=== PATIENT | female | born 1945 | race Caucasian/White ===

== ENCOUNTER → 2019-08-09 | Outpatient (CLI) | payer BC ==
[~2019-08-09] MED LIST: ACHD5005 PO; AMLO5TAB4 PO; ATEN25TA PO; ATOR20TA49 PO; CEPH-507 PO; DAPA1TAB4 PO; ESOM10SU PO; LOSA25TA2 PO; RIVA10T PO
[2019-08-09 09:23] LABS: ALANINE AMINOTRANSFERASE 15 U/L (0-55); ALBUMIN 4.3 GM/DL (3.2-4.5); ALKALINE PHOSPHATASE 76 U/L (40-136); BILIRUBIN,TOTAL 0.6 MG/DL (0.1-1.0); BUN/CREATININE RATIO 21; CALCIUM 9.9 MG/DL (8.5-10.1); CARBON DIOXIDE 24 MMOL/L (21-32); CHLORIDE 103 MMOL/L (98-107); CREATININE SERUM 0.63 MG/DL (0.60-1.30); GFR ESTIMATED > 60; GLUCOSE 177 MG/DL (70-105); POTASSIUM 4.4 MMOL/L (3.6-5.0); SODIUM 142 MMOL/L (135-145); TOTAL PROTEIN 7.5 GM/DL (6.4-8.2)
[2019-08-09 15:28] LABS: CHOLESTEROL 160 MG/DL (< 200); HDL CHOLESTEROL 63 MG/DL (40-60); TRIGLYCERIDES 104 MG/DL (<150); VLDL CHOLESTEROL 21 MG/DL (5-40)
== END ==
LOC: LAB FS 08:07
PROVIDERS: ATTEND Family Medicine
DX: E11.9 Type 2 diabetes mellitus without complications (principal)
CPT/HCPCS: 36415; 80053; 80061; 83036

== ENCOUNTER 2020-04-21 16:55 | Emergency (ER) | payer BC ==
[~2020-04-21] VITALS: Ht 154.9 cm; Wt 63.1 kg
[2020-04-21 17:26] LABS: CLARITY,URINE CLEAR; COLOR,URINE YELLOW
[2020-04-21 17:27] LABS: BACTERIA,URINE NEGATIVE /HPF; BILIRUBIN,URINE NEGATIVE (NEGATIVE); GLUCOSE, URINE (UA) 3+ (NEGATIVE); KETONES,URINE NEGATIVE (NEGATIVE); LEUKOCYTE ESTERASE ,URINE NEGATIVE (NEGATIVE); NITRITE,URINE NEGATIVE (NEGATIVE); PROTEIN,URINE NEGATIVE (NEGATIVE); RBC,URINE RARE /HPF
--- NOTE | 2020-04-21 17:40 | ED Back Pain ---
General Chief Complaint: Back Problems Stated Complaint: BACK PAIN Nursing Triage Note: Pt arrived by private vehicle with , with chief complaint of back injury. A week ago yesterday, pt tried to pull a tree onto the porch and heard her lower back "pop". Pt was alert, oriented x 4 and ambulatory. Pt stated she took a tylenol this afternoon at 1600, but only helped a little bit. Pt thought it was going to get better, but it hasn't. Pt stated her pain was a 8. Pt denies allergies to medications. Pt's vital signs were done at arrival, and urine sample was collected. Nursing Sepsis Screen: No Definite Risk Source of Information: Patient History of Present Illness Date Seen by Provider: Apr 21, 2020 Time Seen by Provider: 17:40 Initial Comments 74-year-old female presenting with complaints of low back pain radiating to her right hip. She states about a week ago she was moving a heavy plant and signed. She was using a dominique that was having to pull hard to get the plant removed. As she was pulling she felt a pop in her back and was having severe pain that rad iates into her right hip area. She has had pain continuing all week. She thought it was going to get better on its own. However when it wasn't getting better she tried contacting her doctor's office. Initially the nurse and told her that if it wasn't better in a few days to call back in to the clinic. When she called back they told her she couldn't be seen until Friday. The pain was too severe and she has not been able to rest the last few days because of it so she came into the emergency department. Certain positions and movement seemed to make it worse. There is no pain radiating down her leg. She has no numbness or tingling. She has no loss of bowel or bladder control. She denies having pain like this in the past. Tylenol and Ibuprofen at home have helped a minimal amount but nothing that lasted more than 1-2 hours at most. Location: Lumbar Spine (radiating around to the right hip area) Timing/Duration: 6-7 Days Severity: Severe Pain/Injury Location: Back, Pelvis (right hip) Radiation: Other (low back wrapping around to the right hip) Modifying Factors: Worse With Movement Associated Symptoms: No fever, No weakness, No numbness in legs/feet, No tingling in legs/feet, No sensory/motor loss; lower back pain; No loss of bladder control, No loss of bowel control Allergies and Home Medications Allergies Coded Allergies: No Known Drug Allergies (Unverified , 04/12/16) Home Medications Amlodipine Besylate 5 Mg Tablet, 5 MG PO DAILY, (Reported) Atenolol 25 Mg Tablet, 25 MG PO DAILY, (Reported) Atorvastatin Calcium 20 Mg Tablet, 20 MG PO DAILY, (Reported) Cephalexin 500 Mg Capsule, 500 MG PO TID Prescribed by: ILA JARAMILLO on 04/12/16 143 Dapagliflozin/Metformin HCl 1 Each Tab.bp.24h, 1 EACH PO DAILY, (Reported) Esomeprazole Magnesium 10 Mg Suspdr.pkt, 10 MG PO DAILY, (Reported) Hydrocodone Bit/Acetaminophen 1 Each Tablet, 1-2 EACH PO Q4H PRN for PAIN Prescribed by: ILA JARAMILLO on 04/12/16 143 Hydrocodone/Acetaminophen 1 Each Tablet, 1 EACH PO Q6H PRN for PAIN-SEVERE (8- 10) Prescribed by: ARNALDO BARRIGA on 04/21/201956 Losartan Potassium 25 Mg Tablet, 25 MG PO DAILY, (Reported) Rivaroxaban 10 Mg Tablet, 10 MG PO DAILY, (Reported) Patient Home Medication List Home Medication List Reviewed: Yes Review of Systems Constitutional: no symptoms reported EENTM: no symptoms reported Respiratory: no symptoms reported Cardiovascular: no symptoms reported Gastrointestinal: no symptoms reported Genitourinary: no symptoms reported Musculoskeletal: see HPI Skin: no symptoms reported Psychiatric/Neurological: See HPI Past Hwsrskq-Pasfqb-Eqmrhy Hx Past Med/Social Hx: Reviewed Nursing Past Med/Soc Hx Patient Social History Alcohol Use: Denies Use Recreational Drug Use: No Smoking Status: Never a Smoker Type Used: Cigarettes Former Smoker, Quit: Mar 30, 1981 Recent Foreign Travel: No Contact w/Someone Who Travel: No Recent Infectious Disease Expo: No Recent Hopitalizations: No Physical Abuse: No Sexual Abuse: No Mistreated: No Fear: No Immunizations Up To Date Date of Pneumonia Vaccine: Mar 30, 2015 Date of Influenza Vaccine: Feb 29, 2016 Seasonal Allergies Seasonal Allergies: No Past Medical History Surgeries: Yes (eye, spinal, "throat", breast biopsy ) Section, Gallbladder, Orthopedic Respiratory: No Cardiac: Yes Hypertension Neurological: No Reproductive Disorders: No Gastrointestinal: No Musculoskeletal: Yes (CERVICAL STENOSIS) Endocrine: Yes Diabetes, Non-Insulin dep Hearing Impairment: Denies Cancer: No Psychosocial: No Integumentary: No Blood Disorders: No Physical Exam Vital Signs Vital Signs - First Documented 04/21/20 17:00 Temp 37.2 Pulse 77 Resp 16 B/P (MAP) 178/99 (125) Pulse Ox 98 O2 Delivery Room Air Capillary Refill : Less Than 3 Seconds Height, Weight, BMI Height: 5'1.00" Weight: 139lbs. 0.0oz. 63.642529fn; 26.00 BMI Method: General Appearance: WD/WN, Mild Distress Neck: Normal Inspection, Non Tender, Supple Cardiovascular: Regular Rate, Rhythm, Normal Peripheral Pulses Respiratory: Chest Non Tender, Lungs Clear, Normal Breath Sounds Gastrointestinal: Normal Bowel Sounds, No Pulsatile Mass, Non Tender, Soft Back: No CVA Tenderness, No Vertebral Tenderness; No CVA Tenderness (L), No CVA Tenderness (R); Decreased Range of Motion (due to pain in right lumbar and low back pain); No Muscle Spasm, No Vertebral Tenderness Extremity: Normal Capillary Refill, Normal Range of Motion (but pain in Right hip and low back with movement), No Pedal Edema Neurologic/Psychiatric: Alert, Oriented x3, No Motor/Sensory Deficits Skin: Normal Color, Warm/Dry Progress/Results/Core Measures Results/Orders Lab Results Laboratory Tests Test 04/21/20 17:10 Range/Units Urine Color YELLOW Urine Clarity CLEAR Urine pH 6.0 5-9 Urine Specific [place] 1.015 L 1.016-1.022 Urine Protein NEGATIVE NEGATIVE Urine Glucose (UA) 3+ H NEGATIVE Urine Ketones NEGATIVE NEGATIVE Urine Nitrite NEGATIVE NEGATIVE Urine Bilirubin NEGATIVE NEGATIVE Urine Urobilinogen 0.2 < = 1.0 MG/DL Urine Leukocyte Esterase NEGATIVE NEGATIVE Urine RBC (Auto) NEGATIVE NEGATIVE Urine RBC RARE /HPF Urine WBC 2-5 /HPF Urine Squamous Epithelial Cells 2-5 /HPF Urine Crystals NONE /LPF Urine Leucine Crystals /LPF Urine Bacteria NEGATIVE /HPF Urine Casts NONE /LPF Urine Mucus NEGATIVE /LPF Urine Culture Indicated NO My Orders Orders - ARNALDO BARRIGA MD Ua Culture If Indicated (04/21/20 17:01) Ketorolac Injection (Toradol Injection) (04/21/20 17:56) Orphenadrine Inj (Ed Only) (Norflex Inje (04/21/20 17:56) Ct Lumbar Spine Wo (04/21/20 18:37) Ct Pelvis Wo (04/21/20 18:37) Rx-Hydrocodone/Apap 5-325 Mg (Rx-Vicodin (04/21/20 20:00) Medications Given in ED Current Medications Medications Dose Ordered Sig/Nayana Route Start Time Stop Time Status Last Admin Dose Admin Acetaminophen/ Hydrocodone Bitart 1 ea Q6H PRN PO 04/21/20 20:00 04/21/20 20:02 DC 04/21/20 20:00 1 EA Vital Signs/I&O 04/21/20 04/21/20 17:00 20:02 Temp 37.2 Pulse 77 82 Resp 16 18 B/P (MAP) 178/99 (125) 146/92 (125) Pulse Ox 98 99 O2 Delivery Room Air Room Air Blood Pressure Mean: 125 Progress Progress Note #1: Progress Note try toradol with norflex to see if that helps her pain while waiting on CT scan of Lumbar spine and pelvis to evaluate for compression fracture or pelvis fracture Progress Note #2: Progress Note CT imaging does show L1 compression fracture. No other acute findings in lumbar spine or pelvis. Will treat with pain meds and have her check with clinic and if needed see about pain management or kyphoplasty. Diagnostic Imaging Diagonstic Imaging: CT Plain Films/CT/US/NM/MRI: pelvis (and Lumbar spine) Comments NAME: ERICK BREWSTER [facility] REC#: [id number] PT STATUS: REG ER : 1945 PHYSICIAN: ARNALDO BARRIGA MD ADMIT DATE: 04/21/20/ER FS Draft Date of Exam:04/21/20 CT LUMBAR SPINE WO PROCEDURE: CT lumbar spine without contrast. TECHNIQUE: Multiple contiguous axial images were obtained through the lumbar spine without the use of intravenous contrast. Sagittal and coronal reformations were then performed. Auto Exposure Controls were utilized during the CT exam to meet ALARA standards for radiation dose reduction. INDICATION: Injury one week ago following lifting as well as a fall. COMPARISON: None. FINDINGS: There is mild superior endplate compression deformity at L1 with about 10% stature loss of its middle and anterior one-third. Some of this is sclerotic and well marginated, however, at least a few cortical lucencies anteriorly are present consistent with at least some acute component to this compression. There is no retropulsion. This appears to be a single column injury with no involvement of the neural arch or posterior elements. There is a hemangioma in the L5 vertebral body as a chronic benign finding. No additional fracture found. Visualized portions of the sacrum are unremarkable. There is no appreciable paraspinal hematoma. There is likely some mild paraspinal edema associated with the L1 superior endplate compression. IMPRESSION: Slight L1 superior endplate compression with at least some element suggestive of an acute or subacute injury. This single column finding results in no stenosis or listhesis and is a stable injury. Otherwise additional chronic findings noted no other suspected acute or or subacute fracture. Dictated on workstation # [id number] Dict: 04/21/201899 Trans: 04/21/201924 PJE [id number] Interpreted by: TONY RODRIGUEZ Electronically signed by: NAME: ERICK BREWSTER [facility] REC#: [id number] PT STATUS: REG ER : 1945 PHYSICIAN: ARNALDO BARRIGA MD ADMIT DATE: 04/21/20/ER FS Draft Date of Exam:04/21/20 CT PELVIS WO PROCEDURE: CT pelvis without contrast. TECHNIQUE: Multiple contiguous axial images were obtained through the pelvis without the use of intravenous contrast. Sagittal and coronal reformations were performed. Auto Exposure Controls were utilized during the CT exam to meet ALARA standards for radiation dose reduction. INDICATION: Low back and right hip pain. COMPARISON: None. FINDINGS: No fracture or malalignment. Benign hemangioma in the L5 segment. Mild degenerative changes in the sacroiliac joints. No suspicious osteoblastic or lytic lesions. Moderate colonic diverticulosis. No acute finding in the visualized pelvic contents. IMPRESSION: No acute CT finding in the pelvis. No fracture or malalignment. Dictated on workstation # [id number] Dict: 04/21/201902 Trans: 04/21/201928 PJE [id number] Interpreted by: ROBBI HOYOS MD Electronically signed by: Departure Impression Primary Impression: Traumatic compression fracture of first lumbar vertebra Qualified Codes: S32.010A - Wedge compression fracture of first lumbar vertebra, initial encounter for closed fracture Additional Impressions: Acute lumbar back pain Qualified Codes: M54.5 - Low back pain Right hip pain Disposition: 01 HOME, SELF-CARE Condition: Stable Departure-Patient Inst. Decision time for Depature: 19:55 Referrals: LIAM FERRO MD (PCP/Family) Primary Care Physician Patient Instructions: Lumbar Muscle Strain (DC), Vertebral Compression Fracture (DC), Low Back Pain (DC) Add. Discharge Instructions: Try alternating ice and heat to your back for pain and inflammation. Use the narcotic pain medicine to help with severe pain and take a laxative while using the pain medicine to help prevent straining or constipation. Check back with Dr. Ferro and if you have continued problems you may need to see pain management or have additional treatment for pain control. All discharge instructions reviewed with patient and/or family. Voiced understanding. Scripts Hydrocodone/Acetaminophen (Hydrocodone-Acetamin 5-325 mg) 1 Each Tablet 1 EACH PO Q6H PRN for PAIN-SEVERE (8-10) for 5 Days, #20 TAB 0 Refills Prov: ARNALDO BARRIGA MD 04/21/20 ARNALDO BARRIGA MD Apr 21, 2020 17:40
[2020-04-21] MEDS ORDERED: ORPHENADRINE 60 MG/2 ML (NORFLEX) AMP (ED ONLY) IM STA (17:56)
[2020-04-21] MEDS ORDERED: KETOROLAC 30 MG/ML VIAL IM STA (17:56)
--- NOTE | 2020-04-21 18:54 | NUR ---
Report was given to YOUNG Loomis. Care was transferred at this time.
--- NOTE | 2020-04-21 19:26 | Diagnostic Imaging Report ---
PROCEDURE: CT lumbar spine without contrast. TECHNIQUE: Multiple contiguous axial images were obtained through the lumbar spine without the use of intravenous contrast. Sagittal and coronal reformations were then performed. Auto Exposure Controls were utilized during the CT exam to meet ALARA standards for radiation dose reduction. INDICATION: Injury one week ago following lifting as well as a fall. COMPARISON: None. FINDINGS: There is mild superior endplate compression deformity at L1 with about 10% stature loss of its middle and anterior one-third. Some of this is sclerotic and well marginated, however, at least a few cortical lucencies anteriorly are present consistent with at least some acute component to this compression. There is no retropulsion. This appears to be a single column injury with no involvement of the neural arch or posterior elements. There is a hemangioma in the L5 vertebral body as a chronic benign finding. No additional fracture found. Visualized portions of the sacrum are unremarkable. There is no appreciable paraspinal hematoma. There is likely some mild paraspinal edema associated with the L1 superior endplate compression. IMPRESSION: Slight L1 superior endplate compression with at least some element suggestive of an acute or subacute injury. This single column finding results in no stenosis or listhesis and is a stable injury. Otherwise additional chronic findings noted no other suspected acute or or subacute fracture. Dictated by: Dictated on workstation # [id number]
--- NOTE | 2020-04-21 19:30 | Diagnostic Imaging Report ---
PROCEDURE: CT pelvis without contrast. TECHNIQUE: Multiple contiguous axial images were obtained through the pelvis without the use of intravenous contrast. Sagittal and coronal reformations were performed. Auto Exposure Controls were utilized during the CT exam to meet ALARA standards for radiation dose reduction. INDICATION: Low back and right hip pain. COMPARISON: None. FINDINGS: No fracture or malalignment. Benign hemangioma in the L5 segment. Mild degenerative changes in the sacroiliac joints. No suspicious osteoblastic or lytic lesions. Moderate colonic diverticulosis. No acute finding in the visualized pelvic contents. IMPRESSION: No acute CT finding in the pelvis. No fracture or malalignment. Dictated by: Dictated on workstation # [id number]
[2020-04-21] MEDS ORDERED: ACHD5005 PO (19:56)
[2020-04-21] MEDS ORDERED: RX-HYDROCODONE/APAP 5/325 MG #4 TAB PK PO PRN (20:00)
[2020-04-21 20:02] VITALS: BP 146/92
== END 2020-04-21 20:02 | disposition home or self-care (01) ==
LOC: EDUNIT# 16:55 → ER FS 16:56
DX: S32.010A Wedge compression fracture of first lumbar vertebra, initial encounter for closed fracture (principal); M25.551 Pain in right hip; I10 Essential (primary) hypertension; E11.9 Type 2 diabetes mellitus without complications; Z87.891 Personal history of nicotine dependence; Z79.84 Long term (current) use of oral hypoglycemic drugs; Z79.01 Long term (current) use of anticoagulants; X50.0XXA Overexertion from strenuous movement or load, initial encounter
CPT/HCPCS: 72131; 72192; 81000

== ENCOUNTER 2022-08-14 13:36 | Emergency (ER) | payer BC ==
[~2022-08-14] VITALS: Ht 157.5 cm; Wt 56.7 kg
[2022-08-14] MEDS ORDERED: morphine INJ 10 MG/ML 1ML (SYR OR VIAL) IVP STA (13:43)
--- NOTE | 2022-08-14 13:48 | ED Fall/Injury ---
General Stated Complaint: LT HIP INJ Source: patient, EMS Exam Limitations: no limitations History of Present Illness Date Seen by Provider: Aug 14, 2022 Time Seen by Provider: 13:37 Initial Comments 76-year-old female with past medical history of hypertension, hyperlipidemia, diabetes coming in via EMS from home after she was outside, fell off the patio, landing on her left hip with severe pain. Pain is sharp, worse with movement, better with rest. EMS placed an IV and gave her 4 mg of morphine which did help somewhat with the pain. She did not hit her head, did not pass out, denies any neck or back pain. She does not take any blood thinners. She states she was able to roll on her side and essentially crawl to the door before she was able to yell to her who was able to get her up in a wheelchair. She give it some time because she thought it would improve. When the pain did not get better, she eventually called EMS. Allergies and Home Medications Allergies Coded Allergies: No Known Drug Allergies (Unverified , 04/12/16) Patient Home Medication List Home Medication List Reviewed: Yes Amlodipine Besylate (Norvasc) 5 Mg Tablet, 5 MG PO DAILY, (Reported) Entered as Reported by: ILA JARAMILLO on 04/12/16 111 Atenolol (Atenolol) 25 Mg Tablet, 25 MG PO DAILY, (Reported) Entered as Reported by: ILA JARAMILLO on 04/12/16 111 Atorvastatin Calcium (Lipitor) 20 Mg Tablet, 20 MG PO DAILY, (Reported) Entered as Reported by: ILA JARAMILLO on 04/12/16 1118 Cephalexin (Keflex) 500 Mg Capsule, 500 MG PO TID Prescribed by: ILA JARAMILLO on 04/12/16 1432 Dapagliflozin/Metformin HCl (Xigduo Xr 10 mg-500 mg Tablet) 1 Each Tab.bp.24h, 1 EACH PO DAILY, (Reported) Entered as Reported by: ILA JARAMILLO on 04/12/16 1118 Esomeprazole Magnesium (Nexium) 10 Mg Suspdr.pkt, 10 MG PO DAILY, (Reported) Entered as Reported by: ILA JARAMILLO on 04/12/16 1118 Hydrocodone Bit/Acetaminophen (Lortab 5 Mg Tablet) 1 Each Tablet, 1-2 EACH PO Q4H PRN for PAIN Prescribed by: ILA JARAMILLO on 04/12/16 1432 Hydrocodone/Acetaminophen (Hydrocodone-Acetamin 5-325 mg) 1 Each Tablet, 1 EACH PO Q6H PRN for PAIN-SEVERE (8-10) Prescribed by: ARNALDO BARRIGA on 04/21/201956 Losartan Potassium (Cozaar) 25 Mg Tablet, 25 MG PO DAILY, (Reported) Entered as Reported by: ILA JARAMILLO on 04/12/16 1118 Oxycodone HCl (Oxycodone HCl) 5 Mg Tablet, 5 MG PO Q6H PRN for PAIN-SEVERE (8- 10) Prescribed by: DIANA JAIN on 08/14/22 1445 Rivaroxaban (Xarelto Tablet) 10 Mg Tablet, 10 MG PO DAILY, (Reported) Entered as Reported by: ILA JARAMILLO on 04/12/16 1118 Review of Systems Review of Systems Constitutional: No fever Eyes: No Symptoms Reported Ears, Nose, Mouth, Throat: no symptoms reported Respiratory: no symptoms reported Cardiovascular: no symptoms reported Gastrointestinal: no symptoms reported Genitourinary: no symptoms reported Musculoskeletal: see HPI Skin: no symptoms reported Psychiatric/Neurological: No Symptoms Reported All Other Systems Reviewed Negative Unless Noted: Yes Past Spyztff-Irzvis-Bjrtwx Hx Patient Social History Tobacco Use?: No Seasonal Allergies Seasonal Allergies: No Past Medical History Surgeries: Yes (eye, spinal, "throat", breast biopsy ) Section, Gallbladder, Orthopedic Respiratory: No Cardiac: Yes Hypertension Neurological: No Reproductive Disorders: No Gastrointestinal: No Musculoskeletal: Yes (CERVICAL STENOSIS) Endocrine: Yes Diabetes, Non-Insulin dep Hearing Impairment: Denies Cancer: No Psychosocial: No Integumentary: No Blood Disorders: No Physical Exam Vital Signs Vital Signs - First Documented 08/14/22 13:36 Temp 36.3 Pulse 84 Resp 20 B/P (MAP) 188/77 (114) O2 Delivery Room Air Capillary Refill : Height, Weight, BMI Height: 5'1.00" Weight: 139lbs. 0.0oz. 63.027381mo; 26.00 BMI Method: General Appearance: WD/WN, mild distress HEENT: PERRL/EOMI, normal ENT inspection, pharynx normal Neck: non-tender, full range of motion, supple, normal inspection Cardiovascular: regular rate, rhythm, no edema, no murmur Respiratory: chest non-tender, lungs clear, normal breath sounds, no respiratory distress, no accessory muscle use Gastrointestinal: normal bowel sounds, non tender, soft; No distended, No guarding, No rebound Back: normal inspection, no CVA tenderness, no vertebral tenderness Extremities: other (Left hip pain laterally, left leg shortened compared to the right, normal distal pulses and sensation, patient able to move foot without difficulty) Neurologic/Psychiatric: no motor/sensory deficits, alert, normal mood/affect, oriented x 3 Skin: normal color, warm/dry Lymphatic: no adenopathy [place] Coma Score Best Eye Response: (4) Open Spontaneously Best Verbal Response: (5) Oriented Best Motor Response: (6) Obeys Commands Progress/Results/Core Measures Results/Orders Lab Results Laboratory Tests Test 08/14/22 13:40 Range/Units White Blood Count 11.5 H 4.3-11.0 10^3/uL Red Blood Count 5.37 H 3.80-5.11 10^6/uL Hemoglobin 16.9 H 11.5-16.0 g/dL Hematocrit 49 35-52 % Mean Corpuscular Volume 91 80-99 fL Mean Corpuscular Hemoglobin 32 25-34 pg Mean Corpuscular Hemoglobin Concent 35 32-36 g/dL Red Cell Distribution Width 12.3 10.0-14.5 % Platelet Count 234 130-400 10^3/uL Mean Platelet Volume 10.2 9.0-12.2 fL Immature Granulocyte % (Auto) 1 % Neutrophils (%) (Auto) 76 H 42-75 % Lymphocytes (%) (Auto) 17 12-44 % Monocytes (%) (Auto) 5 0-12 % Eosinophils (%) (Auto) 0 0-10 % Basophils (%) (Auto) 1 0-10 % Neutrophils # (Auto) 8.7 H 1.8-7.8 10^3/uL Lymphocytes # (Auto) 1.9 1.0-4.0 10^3/uL Monocytes # (Auto) 0.6 0.0-1.0 10^3/uL Eosinophils # (Auto) 0.1 0.0-0.3 10^3/uL Basophils # (Auto) 0.1 0.0-0.1 10^3/uL Immature Granulocyte # (Auto) 0.1 0.0-0.1 10^3/uL Prothrombin Time 13.3 12.2-14.7 SEC INR Comment 1.0 0.8-1.4 Activated Partial Thromboplast Time 24 24-35 SEC Sodium Level 139 135-145 MMOL/L Potassium Level 3.8 3.6-5.0 MMOL/L Chloride Level 100 98-107 MMOL/L Carbon Dioxide Level 24 21-32 MMOL/L Anion Gap 15 H 5-14 MMOL/L Blood Urea Nitrogen 10 7-18 MG/DL Creatinine 0.63 0.60-1.30 MG/DL Estimat Glomerular Filtration Rate 92 BUN/Creatinine Ratio 16 Glucose Level 219 H 70-105 MG/DL Calcium Level 10.4 H 8.5-10.1 MG/DL Corrected Calcium 10.0 8.5-10.1 MG/DL Total Bilirubin 0.8 0.1-1.0 MG/DL Aspartate Amino Transf (AST/SGOT) 17 5-34 U/L Alanine Aminotransferase (ALT/SGPT) 15 0-55 U/L Alkaline Phosphatase 108 40-136 U/L Total Protein 7.8 6.4-8.2 GM/DL Albumin 4.5 3.2-4.5 GM/DL My Orders Orders - DIANA JAIN MD Cbc With Automated Diff (08/14/22 13:43) Comprehensive Metabolic Panel (08/14/22 13:43) Protime With Inr (08/14/22 13:43) Partial Thromboplastin Time (08/14/22 13:43) Ed Iv/Invasive Line Start (08/14/22 13:43) Morphine Injection (Morphine Injection (08/14/22 13:43) Hip 2-3 View Left (08/14/22 13:43) Ct Pelvis Wo (08/14/22 14:11) Ketorolac Injection (Toradol Injection) (08/14/22 14:45) Acetaminophen Tablet (Tylenol Tablet) (08/14/22 14:45) Medications Given in ED Current Medications Medications Dose Ordered Sig/Nayana Route Start Time Stop Time Status Last Admin Dose Admin Acetaminophen 1,000 mg ONCE ONCE PO 08/14/22 14:45 08/14/22 14:46 DC 08/14/22 14:45 1,000 MG Ketorolac Tromethamine 15 mg ONCE ONCE IVP 08/14/22 14:45 08/14/22 14:46 DC 08/14/22 14:45 15 MG Vital Signs/I&O 08/14/22 13:36 Temp 36.3 Pulse 84 Resp 20 B/P (MAP) 188/77 (114) O2 Delivery Room Air Progress Progress Note : Progress Note 76-year-old female with above history coming in after falling and landing on her left hip with severe pain. ABCs were intact and vitals were stable on presentation. Physical exam with left lateral hip tenderness, no skin changes. Pain with logroll on the left side. Neurovascularly intact distal to the injury. X-ray of the left hip ordered and interpreted by me showing no fracture or dislocation, but she does have severe degenerative changes. Given continued pain, CT pelvis ordered to assess for occult fracture which on my interpretation is also negative. The patient had received 6 mg of IV morphine initially, and after the negative CT, she got Toradol and Tylenol. I will send her pain medications via prescription. She should follow-up with an orthopedist as an outpatient. She does have a wheelchair at home for comfort. Diagnostic Imaging Diagonstic Imaging: Xray (pelvis and left hip) Comments NAME: ERICK BREWSTER [facility] REC#: [id number] PT STATUS: REG ER : 1945 PHYSICIAN: DIANA JAIN MD ADMIT DATE: 08/14/22/ER FS Draft Date of Exam:08/14/22 CT PELVIS WO CLINICAL INDICATION: Patient status post fall with left hip pain. Rule out fracture. EXAM: Axial CT scan of the pelvis performed without IV contrast. Sagittal and coronal reformatted images were created. Auto Exposure Controls were utilized during the CT exam to meet ALARA standards for radiation dose reduction. COMPARISON: CT of the pelvis without contrast dated 04/21/2020. FINDINGS: There is no acute fracture or dislocation seen on this exam. The left hip bony structures are intact. There are mild to moderately hypertrophic spurs involving the bilateral acetabular regions. There are mildly hypertrophic spurs involving the bilateral femoral head/neck junction regions. There is sclerosis of the bilateral sacroiliac joints. There is enthesopathy of the greater trochanter, bilaterally. There is lower lumbar spine facet arthropathy. There is diverticulosis with no CT evidence of diverticulitis on the visualized images. IMPRESSION: There is no evidence of acute fracture or dislocation. Dictated on workstation # [id number] Dict: 08/14/22 1436 Trans: 08/14/22 1453 [facility] [id number] Interpreted by: JOHNATHON ROBERTS MD Electronically signed by: Departure Impression Primary Impression: Contusion of left hip Qualified Codes: S70.02XA - Contusion of left hip, initial encounter Disposition: HOME, SELF-CARE Condition: Stable Departure-Patient Inst. Decision time for Depature: 14:56 Referrals: LIAM FERRO MD (PCP) Primary Care Physician LUCIEN WELLINGTON MD Patient Instructions: Hip Pointer (DC) Add. Discharge Instructions: Fortunately nothing appears broken on the x-ray or CT scan. This likely is a severe bone bruise that is causing pain. Take Tylenol 1000mg every 6 hours and/or naproxen 250mg every 12 hours as needed for pain. Both of these are over the counter medications. If you have pain on top of that, you can take the oxycodone. Follow-up with Dr. Wellington in [place] if its not improving rapidly in the next couple of days. It is safe to walk on it, but you can use the wheelchair for comfort. Scripts Oxycodone HCl (Oxycodone HCl) 5 Mg Tablet 5 MG PO Q6H PRN for PAIN-SEVERE (8-10) for 3 Days, #12 TAB Prov: DIANA JAIN MD 08/14/22 DIANA JAIN MD Aug 14, 2022 13:48
[2022-08-14 13:53] LABS: BASOPHILS # (AUTO) 0.1 10^3/uL (0.0-0.1); BASOPHILS % (AUTO) 1 % (0-10); EOSINOPHILS # (AUTO) 0.1 10^3/uL (0.0-0.3); EOSINOPHILS % (AUTO) 0 % (0-10); HEMATOCRIT 49 % (35-52); HEMOGLOBIN 16.9 g/dL (11.5-16.0); LYMPHOCYTES # (AUTO) 1.9 10^3/uL (1.0-4.0); LYMPHOCYTES % (AUTO) 17 % (12-44); MEAN CORPUSCULAR HEMOGLOBIN 32 pg (25-34); MEAN CORPUSCULAR HGB CONC 35 g/dL (32-36); MEAN CORPUSCULAR VOLUME 91 fL (80-99); MEAN PLATELET VOLUME 10.2 fL (9.0-12.2); MONOCYTES # (AUTO) 0.6 10^3/uL (0.0-1.0); MONOCYTES % (AUTO) 5 % (0-12); NEUTROPHILS # (AUTO) 8.7 10^3/uL (1.8-7.8); NEUTROPHILS % (AUTO) 76 % (42-75); PLATELET COUNT 234 10^3/uL (130-400); WHITE BLOOD COUNT 11.5 10^3/uL (4.3-11.0)
[2022-08-14 13:59] LABS: PROTHROMBIN TIME PATIENT 13.3 SEC (12.2-14.7)
[2022-08-14 14:08] LABS: ALBUMIN 4.5 GM/DL (3.2-4.5); BILIRUBIN,TOTAL 0.8 MG/DL (0.1-1.0); CALCIUM 10.4 MG/DL (8.5-10.1); CREATININE SERUM 0.63 MG/DL (0.60-1.30); POTASSIUM 3.8 MMOL/L (3.6-5.0); TOTAL PROTEIN 7.8 GM/DL (6.4-8.2)
[2022-08-14] MEDS ORDERED: KETOROLAC 15 MG/ML VIAL IVP ONE (14:45)
[2022-08-14] MEDS ORDERED: OXYC5TAB PO (14:45)
[2022-08-14] MEDS ORDERED: ACETAMINOPHEN 500 MG TAB (TYLENOL) PO ONE (14:45)
--- NOTE | 2022-08-14 14:54 | Diagnostic Imaging Report ---
CLINICAL INDICATION: Patient status post fall with left hip pain. Rule out fracture. EXAM: Axial CT scan of the pelvis performed without IV contrast. Sagittal and coronal reformatted images were created. Auto Exposure Controls were utilized during the CT exam to meet ALARA standards for radiation dose reduction. COMPARISON: CT of the pelvis without contrast dated 04/21/2020. FINDINGS: There is no acute fracture or dislocation seen on this exam. The left hip bony structures are intact. There are mild to moderately hypertrophic spurs involving the bilateral acetabular regions. There are mildly hypertrophic spurs involving the bilateral femoral head/neck junction regions. There is sclerosis of the bilateral sacroiliac joints. There is enthesopathy of the greater trochanter, bilaterally. There is lower lumbar spine facet arthropathy. There is diverticulosis with no CT evidence of diverticulitis on the visualized images. IMPRESSION: There is no evidence of acute fracture or dislocation. Dictated by: Dictated on workstation # [id number]
[2022-08-14 15:03] VITALS: BP 149/84
--- NOTE | 2022-08-15 09:29 | Diagnostic Imaging Report ---
CLINICAL INDICATION: Patient status post fall with left hip pain. EXAM: X-ray of the left hip, AP and frog-leg views. COMPARISON: None. FINDINGS: There is no acute fracture or dislocation. There are moderately hypertrophic spurs involving the left femoral head/neck junction region. There is enthesopathy of the left greater trochanter and left physeal region and left iliac crest. Sacrum shows no significant abnormality. There are degenerative spurs involving the lower lumbar spine. 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 Dictated by: Dictated on workstation # [id number]
== END 2022-08-14 15:03 | disposition home or self-care (01) ==
LOC: EDUNIT# 13:36 → ER FS 13:37
DX: S70.02XA Contusion of left hip, initial encounter (principal); Z28.310 Unvaccinated for COVID-19; W17.89XA Other fall from one level to another, initial encounter
CPT/HCPCS: 36415; 72192; 73502; 80053; 85025; 85610; 85730